=== PATIENT | male | born 1990 | race Caucasian/White ===

== ENCOUNTER 2023-01-10 10:58 | Emergency (ER) | payer SELFPAY ==
[~2023-01-10] VITALS: Ht 175.3 cm; Wt 77.1 kg
[2023-01-10] MEDS ORDERED: HYDROCODONE/APAP 5-325MG TABLET ONE (11:28)
[2023-01-10] MEDS ORDERED: LORAZEPAM 0.5 MG TABLET ONE (11:28)
[2023-01-10] MEDS ORDERED: AMOXicillin 250 MG CAPSULE ONE (11:28)
[2023-01-10] MEDS ORDERED: HYDROCODONE/APAP 5-325MG TABLET PO ONE (11:30)
[2023-01-10] MEDS ORDERED: LORAZEPAM 0.5 MG TABLET PO ONE (11:30)
[2023-01-10] MEDS ORDERED: AMOXicillin 250 MG CAPSULE PO ONE (11:30)
[2023-01-10] MEDS ORDERED: AMOX500C2 PO (11:52)
[2023-01-10] MEDS ORDERED: HYDR-4209 PO (11:52)
[2023-01-10 12:19] VITALS: BP 154/101; TEMP 98.7; O2SAT 99
[2023-01-10] MEDS ORDERED: HYDR-3980 PO (12:27)
== END 2023-01-10 12:20 | disposition home or self-care (01) ==
LOC: ER 10:58
DX: K08.89 Other specified disorders of teeth and supporting structures (principal); Z88.8 Allergy status to other drugs, medicaments and biological substances; Z79.2 Long term (current) use of antibiotics; Z79.899 Other long term (current) drug therapy
CPT/HCPCS: A4663